=== PATIENT | female | born 1950 | race Caucasian/White ===

== ENCOUNTER → 2020-06-15 | Outpatient (CLI) | payer OTHER, MEDICARE ==
[~2020-06-15] MED LIST: ALPRAZOLAM 0.0.25 M1 PO; DIGESTIVE ENZY220 MG PO; FLONASE 0.05%50 MCG NARES; MUCINEX1200 MG PO; MULTIVITAMINS1 EAC7 PO; PRAVACHOL 20 MG20 M1 PO; PREMARIN30 GM VAG; PROAIR HFA8.5 GM INH; PROBIOTIC1 EAC7 PO; REQUIP 0.25 M0.25 M1 PO; TAMSULOSIN HCL0.4 MG PO; VITAMIN D250 MC1 PO
== END ==
LOC: LAB 11:29
PROVIDERS: ATTEND Student in an Organized Health Care Education/Training Program
DX: Z01.812 Encounter for preprocedural laboratory examination (principal); Z11.59 Encounter for screening for other viral diseases

== ENCOUNTER → 2020-06-24 | Outpatient (CLI) | payer OTHER, MEDICARE | LOC: LAB 07:36 | PROVIDERS: ATTEND Student in an Organized Health Care Education/Training Program | DX: Z01.812 Encounter for preprocedural laboratory examination (principal); Z11.59 Encounter for screening for other viral diseases ==

== ENCOUNTER 2020-07-04 06:24 | Day surgery (SDC) | payer OTHER, MEDICARE ==
--- NOTE | 2020-06-20 08:51 | H ---
[facility] [place] [address] HISTORY AND PHYSICAL Name: KURT PARRA Room #: [facility] M.R.#: [id number] Admission: Attend Phys: Ag Betancourt MD Discharge: Date of : 48 Report #: [id number] THIS REPORT FOR: cc: Nick Nur MD, Frank W. MD Shapiro,Ag Olmos MD ~ CC: Nick Betancourt Her procedure is scheduled for June 20. HISTORY OF PRESENT ILLNESS: The patient has problems with her sinuses. She developed a sinus infection in November, ____ the laryngitis. It has been persistent ever since despite several courses of antibiotics, steroids and nasal steroid sprays. She has had problems with asthma in the past. A CT scan of her sinuses shows a deviated nasal septum into the left nasal vestibule with deviation into the right nasal cavity. She has mucous membrane thickening throughout the sinuses with mucous membrane thickening along the floors of the maxillary sinuses and polyp posteriorly on the left. There was scattered mucous membrane thickening throughout the ethmoid sinuses as well. PAST MEDICAL HISTORY: Otherwise, not significant. MEDICATIONS: Include Singulair, Liliana, tamsulosin, Prilosec, alprazolam, pravastatin. ALLERGIES: She is allergic to SULFA. PHYSICAL EXAMINATION: HEENT: She has a deviated nasal septum into the left nasal vestibule with deviation into the right nasal cavity. Her oropharynx and oral cavity were clear. IMPRESSION: Deviated nasal septum with chronic maxillary and ethmoid sinusitis. PLAN: Nasal septoplasty, endoscopic bilateral maxillary antrostomies and complete ethmoidectomies. <ELECTRONICALLY SIGNED> By: Ag Betancourt MD 06/20/20 0851 [id number] Ag Betancourt MD /nt
[~2020-07-04] VITALS: Ht 162.6 cm; Wt 49.4 kg
[2020-07-04 09:24] VITALS: BP 117/76
[2020-07-04 10:37] VITALS: BP 117/76
[2020-07-04 10:38] VITALS: BP 117/76
--- NOTE | 2020-07-04 17:36 | H ---
[facility] [place] [address] HISTORY AND PHYSICAL Name: KURT PARRA Room #: 150-1 [facility]#: [id number] Admission: 07/04/20 Attend Phys: Ag Betancourt MD Discharge: Date of : 48 Report #: [id number] THIS REPORT FOR: cc: Nick Nur MD, Frank W. MD Shapiro,Ag Olmos MD ~ CC: Nick Betancourt DATE OF SERVICE: 07/04/2020 PREOPERATIVE DIAGNOSES: Deviated nasal septum with nasal airway obstruction, chronic maxillary and ethmoid sinusitis. POSTOPERATIVE DIAGNOSES: Deviated nasal septum with nasal airway obstruction, chronic maxillary and ethmoid sinusitis. OPERATIVE PROCEDURES: Nasal septoplasty, endoscopic bilateral maxillary antrostomies with removal of tissue, bilateral complete ethmoidectomies. ANESTHESIA: General by laryngeal mask. DESCRIPTION OF PROCEDURE: The patient was taken to the operating room and placed in supine position. General anesthesia was induced by laryngeal mask. Once adequate general anesthesia was obtained, local nasal anesthesia was induced by submucoperichondrial injection of 1% lidocaine with 1:100,000 epinephrine and application of cocaine solution. The patient was then draped in a sterile manner. The patient had nasal septal deviation primarily to the left side in the middle meatus and anteriorly on the left side. A hemitransfixion incision was placed on the left side of the nose and the mucoperichondrium and mucoperiosteum was elevated off the septum. The cartilage was incised in front of the bony cartilaginous junction and a portion of cartilage and bone was removed from the midportion of the septum. Along the floor, there was hypertrophic cartilage and a fracture of the maxillary crest. The cartilage was removed as a long strip. The maxillary crest was infractured and rongeured. After these maneuvers, the septum sat more in the midline. The hemitransfixion incision was then closed with 4-0 chromic suture and a 4-0 plain mattress sutures placed as well. The nasal endoscope was used to visualize the left nasal cavity and the middle turbinate was deviated medially. The uncinate process was removed using the microdebrider and the natural opening maxillary sinus was located was enlarged in a posterior inferior manner by removing the soft fontanelle. Within the natural opening was thick polypoid mucosa and this was removed using the microdebrider in order to create a large opening. There was purulence in the sinus and this was suctioned. An ethmoidectomy was performed by removing the ethmoidal bulla and then following the ethmoid air cells back to and through the basal lamella and then forward along the lamina [address] [address] HISTORY AND PHYSICAL Name: KURT PARRA Room #: 150-1 [facility].#: [id number] Admission: 07/04/20 Attend Phys: Ag Betancourt MD Discharge: Date of : 48 Report #: [id number] papyracea and fovea ethmoidalis to complete the ethmoidectomy anteriorly. Surgiflo was placed into the ethmoid cavity and middle meatus for hemostasis. The exact same procedure was performed on the right side. The patient tolerated the procedure well. Blood loss was approximately 50 mL. The patient was then awoken and taken to the recovery room in stable condition for postoperative monitoring. <ELECTRONICALLY SIGNED> By: Ag Betancourt MD 07/04/20 1736 [id number] Ag Betancourt MD /nt
== END 2020-07-04 10:38 | disposition home or self-care (01) ==
LOC: OR 06:24 → TBA 06:30 → OR 08:50
PROVIDERS: ATTEND Otolaryngology
DX: J34.2 Deviated nasal septum (principal); J32.2 Chronic ethmoidal sinusitis; J32.0 Chronic maxillary sinusitis; J34.89 Other specified disorders of nose and nasal sinuses; F41.9 Anxiety disorder, unspecified; Z98.890 Other specified postprocedural states; Z79.899 Other long term (current) drug therapy; Z88.2 Allergy status to sulfonamides
CPT/HCPCS: 50010; 50101; 50386; 50398; 51751; 56524; 56528; 56635; 62110; 62900; 70005